=== PATIENT | male | born 1945 | race Caucasian/White ===

== ENCOUNTER 2021-09-24 12:41 | Day surgery (SDC) | payer MEDICARE, MEDICAID, SELFPAY ==
[2021-09-24] VITALS (7 sets, daily range): BP systolic 97–117; BP diastolic 67–94; PULSE 52–66; RESP 16–18; TEMP 36.5–36.9; O2SAT 95–100; BMI 20.9
[2021-09-24] MEDS: Lactated Ringers 1,000 ML 15 ML IV (13:12)
--- NOTE | 2021-09-24 13:45 | COLBX_PTH ---
PATIENT: CHRISTINA CROWDER LOC: EN U#:[id number] AGE/SX: 75/M ROOM: RE09/24/[address]: Dr. Pastor Maria DO : 1945 BED: DIS: 09/24/2021 SPEC #: [id number] RECD: 09/24/21 15:53 STATUS: GOPI VERONICA #: [id number] AIDA: 09/24/21 13:[address]: Pastor Maria DEPT: SURGICAL PATHOLOGY RECD BY: Mariel Gayle ENTERED: 09/25/21 09:47 SP TYPE: COLON BX ADAM DR: Dr. Wing Daily MD Tissues: A - COLON BIOPSY B - Transverse colon C - COLON BIOPSY D - Sigmoid colon biopsy Procedures: Surgery Specimen Level IV HEADER OPERATION: Colonoscopy wit biopsies, EGD ([facility] [place]) PRE-OP DIAGNOSIS: Anemia TISSUE SUBMITTED: A ? Hepatic flexure polyp biopsy, B ? Transverse colon polyp biopsy, C ? Splenic flexure polyp biopsy, D ? Sigmoid polyp biopsy MICROSCOPIC DIAGNOSIS A. Hepatic flexure polyp, biopsy: Fragments of tubular adenoma. Fragments of fecal material. B. Transverse colon polyp, biopsy: Fragments of tubular adenoma. C. Splenic flexure polyp, biopsy: Fragments of tubular adenoma. Fragments of fecal material. D. Sigmoid polyp, biopsy: Tubular adenoma. SJ:javier 09/26/2021 MICROSCOPIC DESCRIPTION Slides are reviewed. GROSS DESCRIPTION A - Received in fixative is one container labeled with the patient's name and designated hepatic flexure polyp biopsy. The specimen consists of multiple irregular fragments of negrete soft tissue mixed with fecal material that in aggregate measure 0.7 x 0.2 x 0.1 cm. The specimen is totally submitted in one cassette. B - Received in fixative is one container labeled with the patient's name and designated transverse colon polyp biopsy. The specimen consists of multiple irregular fragments of light negrete soft tissue mixed with fecal material that in aggregate measure 0.7 x 0.6 x 0.3 cm. The specimen is totally submitted in one cassette. C - Received in fixative is one container labeled with the patient's name and designated splenic flexure polyp biopsy. The specimen consists of multiple irregular fragments of light negrete soft tissue mixed with fecal material that in aggregate measure 2.5 x 0.5 x 0.1 cm. The specimen is totally submitted in one cassette. D - Received in fixative is one container labeled with the patient's name and designated sigmoid polyp biopsy. The specimen consists of multiple irregular fragments of light negrete soft tissue mixed with fecal material that in aggregate measure 1 x 0.3 x 0.2 cm. The specimen is totally submitted in one cassette. / NIKOLE:javier 09/25/2021 TC:1 CPT: 28221 x4
--- NOTE | 2021-09-24 14:18 | PCM.HP.BLA ---
History and Physical Date of Admission: 09/24/21 75 M who was referred to this clinic for evaluation of hematemesis. Additional medical history of parkinson?s disease, COPD, chronic pain, hematuria, dysphagia, vascular dementia with behavioral disturbance, history of alcohol abuse, prediabetes, hyperlipidemia, depressive disorder, HTN, GERD, constipation, communication deficit. 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 He is on dual antiplatelet therapy because of history of recent strokes. During his evaluation for strokes he was discovered to have a hemoglobin of 12.3. We do not have a previous hemoglobin to go on. He also has not had any endoscopy including colonoscopy in the past. He does not know if he has a family history of colon cancer. He has lost about 15 pounds. He denies any chest pain or shortness of breath. He is not on chronic oxygen. He does not have any easily bruising. On his evaluation he was discovered to have a normal platelet count at 230, white blood cell count was 7.8 and hemoglobin 12.3. His kidney function was normal with a BUN of 10 and a creatinine of 1. ROS Const Constitutional: No anorexia, fatigue, fever(s), weight change or sleep problems Eyes Eyes: No change in vision ENT ENT: No abnormal hearing, difficulty swallowing, mouth lesions, tongue swelling or throat swelling Resp Respiratory: No cough or shortness of breath Cardio Cardiology: No chest pain at rest, chest pain with exertion, shortness of breath or dyspnea on exertion Gastro GI: No difficulty swallowing Genitourinary Male: No difficulty urinating or burning urination Musc Musculoskeletal: No joint pain, joint swelling, muscle weakness or decreased muscle mass Skin Skin: No hair loss in leg, yellowing of the eye, itchy eyes, rash, skin ulcer or skin swelling Neuro Neurology: No abnormal hearing, abnormal movements, confusion, unsteady gait/balance or memory loss Psych Psychiatric: No anxiety, No confusion and No memory loss Endo Endocrine: No fatigue or weight change Aller/Imm Allergy/Immunologic: No itchy eyes, throat swelling or tongue swelling Jason/Lymp Hematologic/Lymphatic: No easy bleeding, easy bruising or enlarged lymph nodes Exam Const General: cooperative and comfortable Nutritional Appearance: average body habitus and well nourished HENMT Head: normal to inspection Ears: hearing grossly normal bilaterally Nose: external nose normal Face and sinus: normal facial exam Mouth: oral mucosae normal Throat: posterior oropharynx normal Eyes General: appearance normal, both eyes and all related structures Neck Neck: normal visual inspection Chest Chest palpation & inspection: normal inspection of the chest and normal palpation of entire chest wall Resp Effort & Inspection: normal respiratory effort Auscultation: Bilateral: Clear to Auscultation Cardio Palpation: normal PMI Rate: regular rate Rhythm: regular rhythm GI Inspection: normal to inspection Auscultation: normal bowel sounds Percussion: normal to percussion Palpation: no hepatosplenomegaly Skin General: no rashes or lesions noted Neuro General: patient alert Extrem General: normal to inspection Psych Affect: normal affect Assessment and Plan Assessment and Plan (1) Anemia: Status: Acute Plan - Dr. Baumann Friend, DO: 75 old gentleman with anemia of unknown cause on antiplatelet therapy. The differential diagnosis does include peptic ulcer disease, atrophic gastritis, malignancy, angiodysplasias, telangiectasias. He should undergo upper and lower endoscopy. He was explained alternatives, risk, benefits including outstanding bleeding, infection, sepsis, perforation, need for emergent surgery . He will be an ASA of 3. I have re-examined the patient. There are no clinical changes since date of exam.
--- NOTE | 2021-09-24 15:09 | OP.EGD_ITS ---
Patient Name: Sanjiv Stokes Procedure Date: 09/24/2021 2:13 PM Date of : 1945 Age: 75 Procedure: Upper GI endoscopy Indications: Iron deficiency anemia, Hematemesis Providers: Pastor Maria DO Medicines: See the Anesthesia note for documentation of the administered medications Patient Profile: This is a 75 year old male. Refer to note in patient chart for documentation of history and physical. Patient has symptoms. Complications: No immediate complications. Procedure: Pre-Anesthesia Assessment: - Prior to the procedure, a History and Physical was performed, and patient medications and allergies were reviewed. The patient is competent. The risks and benefits of the procedure and the sedation options and risks were discussed with the patient. All questions were answered and informed consent was obtained. Patient identification and proposed procedure were verified by the physician. Mental Status Examination: alert and oriented. Airway Examination: normal oropharyngeal airway and neck mobility. Respiratory Examination: clear to auscultation. CV Examination: normal. Prophylactic Antibiotics: The patient does not require prophylactic antibiotics. Prior Anticoagulants: The patient has taken no previous anticoagulant or antiplatelet agents. ASA Grade Assessment: II - A patient with mild systemic disease. After reviewing the risks and benefits, the patient was deemed in satisfactory condition to undergo the procedure. The anesthesia plan was to use moderate sedation / analgesia (conscious sedation). Immediately prior to administration of medications, the patient was re-assessed for adequacy to receive sedatives. The heart rate, respiratory rate, oxygen saturations, blood pressure, adequacy of pulmonary ventilation, and response to care were monitored throughout the procedure. The physical status of the patient was re-assessed after the procedure. After obtaining informed consent, the endoscope was passed under direct vision. Throughout the procedure, the patient's blood pressure, pulse, and oxygen saturations were monitored continuously. The colonoscope was introduced through the mouth, and advanced to the second part of duodenum. The upper GI endoscopy was accomplished without difficulty. The patient tolerated the procedure well. Moderate Sedation: Moderate (conscious) sedation was administered by the endoscopy nurse and supervised by the endoscopist. The patient's oxygen saturation, heart rate, blood pressure and response to care were monitored. Total physician intraservice time was 15 minutes. Scope In: 2:27:13 PM Scope Out: 2:32:47 PM Total Procedure Duration Time 0 hours 5 minutes 34 seconds Findings: The examined esophagus was normal. A single 5 mm bleeding angiodysplastic lesion was found in the gastric body. Coagulation for hemostasis using heater probe was successful. Estimated blood loss was minimal. The first portion of the duodenum was normal. Impression: - Normal esophagus. - A single bleeding angiodysplastic lesion in the stomach. Treated with a heater probe. - Normal first portion of the duodenum. - No specimens collected. Recommendation: - Discharge patient to home. - Resume previous diet. - Continue present medications. Procedure Code(s): --- Professional --- 50961, Esophagogastroduodenoscopy, flexible, transoral; with control of bleeding, any method 40818, 59, Moderate sedation services provided by the same physician or other qualified health healthcare translator performing the diagnostic or therapeutic service that the sedation supports, requiring the presence of an independent trained observer to assist in the monitoring of the patient's level of consciousness and physiological status; initial 15 minutes of intraservice time, patient age 5 years or older CPT copyright 2017 [employer]. All rights reserved. The codes documented in this report are preliminary and upon steel sash erector review may be revised to meet current compliance requirements. Pastor Maria DO 09/24/2021 3:08:54 PM This report has been signed electronically. Number of Addenda: 1 Note Initiated On: 09/24/2021 2:13 PM Addendum Number: 1 Addendum Date: 04/02/2022 6:21:30 AM MAC was used as sedation for this procedure. Pastor Maria DO 04/02/2022 6:21:36 AM This report has been signed electronically.
--- NOTE | 2021-09-24 15:10 | OP.CCLET_ITS ---
04/02/2022 Wing Daily [address] [place] [address] Re : Upper GI endoscopy procedure for Sanjiv Stokes Dear Dr. Daily This procedure was performed on Friday, September 24, 2021. My impressions and recommendations are as follows: Impressions : - Normal esophagus. - A single bleeding angiodysplastic lesion in the stomach. Treated with a heater probe. - Normal first portion of the duodenum. - No specimens collected. Recommendations : - Discharge patient to home. - Resume previous diet. - Continue present medications. My findings are described in the full procedure note, which is enclosed. If I can be of further assistance, please feel free to contact me at . Sincerely, Pastor Friend, 09/24/2021 3:08:54 PM This report has been signed electronically.
--- NOTE | 2021-09-24 15:17 | OP.COLON_ITS ---
Patient Name: Sanjiv Stokes Procedure Date: 09/24/2021 2:33 PM Date of : 1945 Age: 75 Procedure: Colonoscopy Indications: Screening for colorectal malignant neoplasm Providers: Pastor Maria DO Medicines: See the Anesthesia note for documentation of the administered medications Patient Profile: This is a 75 year old male. Refer to note in patient chart for documentation of history and physical. Patient has symptoms. Last Colonoscopy: none. The patient's first colonoscopy is today. Complications: No immediate complications. Procedure: Pre-Anesthesia Assessment: - Prior to the procedure, a History and Physical was performed, and patient medications and allergies were reviewed. The patient is competent. The risks and benefits of the procedure and the sedation options and risks were discussed with the patient. All questions were answered and informed consent was obtained. Patient identification and proposed procedure were verified by the physician. Mental Status Examination: alert and oriented. Airway Examination: normal oropharyngeal airway and neck mobility. Respiratory Examination: clear to auscultation. CV Examination: normal. Prophylactic Antibiotics: The patient does not require prophylactic antibiotics. Prior Anticoagulants: The patient has taken no previous anticoagulant or antiplatelet agents. ASA Grade Assessment: II - A patient with mild systemic disease. After reviewing the risks and benefits, the patient was deemed in satisfactory condition to undergo the procedure. The anesthesia plan was to use moderate sedation / analgesia (conscious sedation). Immediately prior to administration of medications, the patient was re-assessed for adequacy to receive sedatives. The heart rate, respiratory rate, oxygen saturations, blood pressure, adequacy of pulmonary ventilation, and response to care were monitored throughout the procedure. The physical status of the patient was re-assessed after the procedure. After I obtained informed consent, the scope was passed under direct vision. Throughout the procedure, the patient's blood pressure, pulse, and oxygen saturations were monitored continuously. The colonoscope was introduced through the anus and advanced to the cecum, identified by appendiceal orifice and ileocecal valve. The ileocecal valve, appendiceal orifice, and rectum were photographed. Moderate Sedation: Moderate (conscious) sedation was administered by the endoscopy nurse and supervised by the endoscopist. The patient's oxygen saturation, heart rate, blood pressure and response to care were monitored. Total physician intraservice time was 15 minutes. Scope In: 2:36:30 PM Scope Withdrawal Time 0 hours 17 minutes 8 seconds Scope Out: 3:03:20 PM Total Procedure Duration Time 0 hours 26 minutes 50 seconds Findings: The perianal and digital rectal examinations were normal. Five sessile polyps were found in the sigmoid colon, splenic flexure, transverse colon and hepatic flexure. The polyps were 1 to 2 mm in size. These polyps were removed with a hot snare. Resection and retrieval were complete. Verification of patient identification for the specimen was done. Estimated blood loss was minimal. A large amount of semi-solid stool was found in the rectum, in the recto-sigmoid colon, in the sigmoid colon and in the cecum, precluding visualization. Lavage of the area was performed using 200 - 500 mL of sterile water, resulting in incomplete clearance with continued poor visualization. Impression: - Five 1 to 2 mm polyps in the sigmoid colon, at the splenic flexure, in the transverse colon and at the hepatic flexure, removed with a hot snare. Resected and retrieved. - Stool in the rectum, in the recto-sigmoid colon, in the sigmoid colon and in the cecum. Recommendation: - Discharge patient to home. - Resume previous diet. - Continue present medications. - Await pathology results. - Repeat colonoscopy in 1 year for surveillance of multiple polyps. Procedure Code(s): --- Professional --- 39269, Colonoscopy, flexible; with removal of tumor(s), polyp(s), or other lesion(s) by snare technique 13035, 59, Moderate sedation services provided by the same physician or other qualified health child care team lead performing the diagnostic or therapeutic service that the sedation supports, requiring the presence of an independent trained observer to assist in the monitoring of the patient's level of consciousness and physiological status; initial 15 minutes of intraservice time, patient age 5 years or older CPT copyright 2017 [employer]. All rights reserved. The codes documented in this report are preliminary and upon inventory representative review may be revised to meet current compliance requirements. Pastor Maria DO 09/24/2021 3:16:24 PM This report has been signed electronically. Number of Addenda: 1 Note Initiated On: 09/24/2021 2:33 PM Addendum Number: 1 Addendum Date: 04/02/2022 6:21:45 AM MAC was used as sedation for this procedure. Pastor Maria DO 04/02/2022 6:21:49 AM This report has been signed electronically.
--- NOTE | 2021-09-24 15:17 | OP.CCLET_ITS ---
04/02/2022 Wing Daily [address] [place] [address] Re : Colonoscopy procedure for Sanjiv Stokes Dear Dr. Daily This procedure was performed on Friday, September 24, 2021. My impressions and recommendations are as follows: Impressions : - Five 1 to 2 mm polyps in the sigmoid colon, at the splenic flexure, in the transverse colon and at the hepatic flexure, removed with a hot snare. Resected and retrieved. - Stool in the rectum, in the recto-sigmoid colon, in the sigmoid colon and in the cecum. Recommendations : - Discharge patient to home. - Resume previous diet. - Continue present medications. - Await pathology results. - Repeat colonoscopy in 1 year for surveillance of multiple polyps. My findings are described in the full procedure note, which is enclosed. If I can be of further assistance, please feel free to contact me at . Sincerely, Pastor Friend, 09/24/2021 3:16:24 PM This report has been signed electronically.
--- NOTE | 2021-09-24 15:48 | SUR.PHASEII ---
PER DR. ROJO PT TO HOLD PLAVIX FOR 3 DAYS POST PROCEDURE.
== END 2021-09-24 15:52 | disposition home or self-care (01) ==
LOC: EN 12:46 → AC 12:48
PROVIDERS: PCP Internal Medicine Infectious Disease; Referring Provider Internal Medicine Infectious Disease; Visit Provider Internal Medicine Gastroenterology
PROC: 0DJD8ZZ Inspection of Lower Intestinal Tract, Via Natural or Artificial Opening Endoscopic (ICD-10-PCS; CPT 45378; principal; 2021-09-24 13:40)
DX: Z12.11 Encounter for screening for malignant neoplasm of colon (principal); G20 Parkinson's disease; F02.81 Dementia in other diseases classified elsewhere, unspecified severity, with behavioral disturbance; J43.9 Emphysema, unspecified; D12.3 Benign neoplasm of transverse colon; D12.5 Benign neoplasm of sigmoid colon; K31.811 Angiodysplasia of stomach and duodenum with bleeding; K92.0 Hematemesis; K59.00 Constipation, unspecified; D50.9 Iron deficiency anemia, unspecified; F32.A Depression, unspecified; K21.9 Gastro-esophageal reflux disease without esophagitis; I25.10 Atherosclerotic heart disease of native coronary artery without angina pectoris; I10 Essential (primary) hypertension; F17.200 Nicotine dependence, unspecified, uncomplicated; Z79.02 Long term (current) use of antithrombotics/antiplatelets; Z79.899 Other long term (current) drug therapy; Z86.73 Personal history of transient ischemic attack (TIA), and cerebral infarction without residual deficits
CPT/HCPCS: 45385; 43255; 88305; J7120; J2405

== ENCOUNTER 2022-11-05 08:10 | Day surgery (SDC) | payer MEDICARE, MEDICAID, SELFPAY ==
[2022-11-05] VITALS (7 sets, daily range): BP systolic 82–127; BP diastolic 35–73; PULSE 75–91; RESP 16–18; TEMP 36.2–36.9; O2SAT 94–100; BMI 20.7
--- NOTE | 2022-11-05 08:23 | SUR.PREOP ---
Tried calling at two different numbers with no answer.
[2022-11-05] MEDS: Lactated Ringers 1,000 ML 15 ML IV ×2 (09:02→10:27)
--- NOTE | 2022-11-05 09:30 | COLBX_PTH ---
PATIENT: CHRISTINA CROWDER LOC: EN U#:[id number] AGE/SX: 76/M ROOM: RE11/05/[address]: Dr. Pastor Maria DO : 1945 BED: DIS: 11/05/2022 SPEC #: [id number] RECD: 11/05/22 10:50 STATUS: GOPI JORDANLigia #: [id number] AIDA: 11/05/22 09:[address]: Pastor Maria DEPT: SURGICAL PATHOLOGY RECD BY: Mariel Gayle ENTERED: 11/05/22 11:29 SP TYPE: COLON BX OTHR DR: Dr. Wing Daily MD Tissues: POLYP Procedures: Surgery Specimen Level IV HEADER OPERATION: Colonoscopy (MAC), polypectomy, hemostasis clip, electrohemostasis PRE-OP DIAGNOSIS: Anemia, tubular adenoma of colon, angiodysplasia of stomach TISSUE SUBMITTED: Polyp cecal cap MICROSCOPIC DIAGNOSIS Polyp cecal cap, polypectomy: Fragments of tubular adenoma. NIKOLE:javier 11/06/2022 MICROSCOPIC DESCRIPTION Slides are reviewed. GROSS DESCRIPTION Received in fixative is one container labeled with the patient's name and designated polyp cecal cap. The specimen consists of multiple irregular fragments of negrete-pink soft tissue mixed with fecal material that in aggregate measure 2.5 x 2.0 x 0.4 cm. The specimen is totally submitted in one cassette. / NIKOLE:javier 11/05/2022 TC:1 CPT: 68959
--- NOTE | 2022-11-05 09:34 | HP.PCM_ITS ---
History and Physical Date of Admission: 11/05/22 CHRISTINA CROWDER, is a 75 M who presents to the office today for discussion of recent EGD and colonoscopy which were performed for anemia of unknown cause on antiplatelet therapy. [facility]. No further hematemesis. He has no complaints at this time. Aide reports no concerns. He is here today for repeat surveillance colonoscopy due to history of multiple polyps. Additional medical history of parkinson?s disease, COPD, chronic pain, hematuria, dysphagia, vascular dementia with behavioral disturbance, history of alcohol abuse, prediabetes, hyperlipidemia, depressive disorder, HTN, GERD, constipation, communication deficit. 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 He is on dual antiplatelet therapy because of history of recent strokes.? During his evaluation for strokes he was discovered to have a hemoglobin of 12.3.? We do not have a previous hemoglobin to go on.? He also has not had any endoscopy including colonoscopy in the past.? He does not know if he has a family history of colon cancer.? He has lost about 15 pounds.? He denies any chest pain or shortness of breath.? He is not on chronic oxygen.? He does not have any easily bruising.? On his evaluation he was discovered to have a normal platelet count at 230, white blood cell count was 7.8 and hemoglobin 12.3.? His kidney function was normal with a BUN of 10 and a creatinine of 1. 09/25/21 EGD and Colonoscopy: Impression: ? - Normal esophagus. ? - A single bleeding angiodysplastic lesion in ? the stomach. Treated with a heater probe. ? - Normal first portion of the duodenum. ? - No specimens collected. Impression: ? - Five 1 to 2 mm polyps in the sigmoid colon, ? at the splenic flexure, in the transverse colon ? and at the hepatic flexure, removed with a hot ? snare. Resected and retrieved. ? - Stool in the rectum, in the recto-sigmoid ? colon, in the sigmoid colon and in the cecum. MICROSCOPIC DIAGNOSIS A.? Hepatic flexure polyp, biopsy:Fragments of tubular adenoma.Fragments of fecal material. B.? Transverse colon polyp, biopsy:Fragments of tubular adenoma. C.? Splenic flexure polyp, biopsy:Fragments of tubular adenoma.Fragments of fecal material. D.? Sigmoid polyp, biopsy:Tubular adenoma ROS Const Constitutional: No fatigue ENT ENT: No difficulty swallowing Gastro GI: No abdominal pain, belching, bloating, change in bowel habits, change in stool character, coffee ground emesis, constipation, cramping, diarrhea, heartburn, difficulty swallowing, feeling full early, excessive flatus, incontinent of stools, Vomiting blood/hematemesis, Blood in stool, loose stools, Black,tarry stools, nausea/dyspepsia, pain with swallowing, vomiting or other Musc Musculoskeletal: No joint pain Skin Skin: No yellowing of the eye or itchy eyes Psych Psychiatric: No anxiety and No depression Endo Endocrine: No fatigue Aller/Imm Allergy/Immunologic: No itchy eyes Jason/Lymp Hematologic/Lymphatic: No easy bleeding or easy bruising Exam Const General: cooperative and comfortable GI Inspection: normal to inspection Palpation: soft Neuro General: patient alert and patient awake Other: uses a walker Quality Reporting Tobacco Screening ([facility] 138) Smoking Status: Light Smoker (<10/day) Assessment and Plan Assessment and Plan (1) Anemia: ?Status:?Acute (2) Tubular adenoma of colon: ?Status:?Acute (3) Angiodysplasia of stomach: ?Status:?Acute ?Plan - [place]ylar [place] CIVIL PREPAREDNESS OFFICER, CIVIL PREPAREDNESS OFFICER-C: 75 [facility] male [facility] resident had one bleeding angiodysplastic lesion in the stomach treated during EGD, no other sites of bleeding found. He had several tubular adenomas removed from the colon. I ordered CBC to be drawn at the [place]; if hgb improving then no further eval needed; if not improving then we'll do capsule endoscopy. Coding Level of Care Code Off vis,est,level 3 Diagnoses Anemia? D64.9 Tubular adenoma of colon? D12.6 Angiodysplasia of stomach? K31.819 I have examined the patient and the H&P has been reviewed. There are no clinical changes since date of exam.
--- NOTE | 2022-11-05 10:22 | OP.COLON_ITS ---
Patient Name: Sanjiv Stokes Procedure Date: 11/05/2022 9:36 AM Date of : 1945 Age: 76 Procedure: Colonoscopy Indications: High risk colon cancer surveillance: Personal history of colonic polyps Providers: Pastor Maria DO Referring MD: Pastor Maria DO Medicines: Monitored Anesthesia Care Patient Profile: This is a 76 year old male. Refer to note in patient chart for documentation of history and physical. Last Colonoscopy: 1 year ago. Complications: No immediate complications. Procedure: Pre-Anesthesia Assessment: - Prior to the procedure, a History and Physical was performed, and patient medications and allergies were reviewed. The risks and benefits of the procedure and the sedation options and risks were discussed with the patient. All questions were answered and informed consent was obtained. Patient identification and proposed procedure were verified by the physician in the pre-procedure area. Mental Status Examination: normal. Airway Examination: normal oropharyngeal airway and neck mobility. Respiratory Examination: clear to auscultation. Prophylactic Antibiotics: The patient does not require prophylactic antibiotics. Prior Anticoagulants: The patient has taken no previous anticoagulant or antiplatelet agents. After reviewing the risks and benefits, the patient was deemed in satisfactory condition to undergo the procedure. The anesthesia plan was to use monitored anesthesia care (MAC). Immediately prior to administration of medications, the patient was re-assessed for adequacy to receive sedatives. The heart rate, respiratory rate, oxygen saturations, blood pressure, adequacy of pulmonary ventilation, and response to care were monitored throughout the procedure. The physical status of the patient was re-assessed after the procedure. After I obtained informed consent, the scope was passed under direct vision. Throughout the procedure, the patient's blood pressure, pulse, and oxygen saturations were monitored continuously. The colonoscope was introduced through the anus and advanced to the cecum, identified by appendiceal orifice and ileocecal valve. The colonoscopy was performed without difficulty. The patient tolerated the procedure well. The quality of the bowel preparation was adequate. Scope In: 9:48:33 AM Scope Withdrawal Time 0 hours 19 minutes 28 seconds Scope Out: 10:12:46 AM Total Procedure Duration Time 0 hours 24 minutes 13 seconds Findings: The perianal and digital rectal examinations were normal. A 5 mm polyp was found in the cecum. The polyp was carpet-like. The polyp was removed with a saline injection-lift technique using a hot snare. Resection and retrieval were complete. Verification of patient identification for the specimen was done. Area was successfully injected with 5 mL of a 1:10,000 solution of epinephrine for drug delivery. To repair the defect, the tissue edges were approximated and one hemostatic clip was successfully placed. There was no bleeding at the end of the procedure. Coagulation for bleeding prevention using heater probe was successful. Estimated blood loss was minimal. A few small-mouthed diverticula were found in the recto-sigmoid colon and sigmoid colon. A single small angiodysplastic lesion with bleeding was found in the sigmoid colon. Coagulation for hemostasis using heater probe was successful. Estimated blood loss was minimal. Impression: - One 5 mm polyp in the cecum, removed using injection-lift and a hot snare. Resected and retrieved. Injected. Clip was placed. Treated with a heater probe. - Diverticulosis in the recto-sigmoid colon and in the sigmoid colon. - A single bleeding colonic angiodysplastic lesion. Treated with a heater probe. Recommendation: - Discharge patient to home. - Resume previous diet. - Continue present medications. - No aspirin, ibuprofen, naproxen, or other non-steroidal anti-inflammatory drugs for 7 days after biopsy. - Repeat colonoscopy in 1 year for surveillance. Procedure Code(s): --- Professional --- 46689, 59, Colonoscopy, flexible; with control of bleeding, any method 45168, Colonoscopy, flexible; with removal of tumor(s), polyp(s), or other lesion(s) by snare technique 20862, 59, Colonoscopy, flexible; with directed submucosal injection(s), any substance CPT copyright 2017 [employer]. All rights reserved. The codes documented in this report are preliminary and upon instructor correspondence school review may be revised to meet current compliance requirements. Pastor Maria DO 11/05/2022 10:21:33 AM This report has been signed electronically. Number of Addenda: 0 Note Initiated On: 11/05/2022 9:36 AM
--- NOTE | 2022-11-05 10:23 | OP.CCLET_ITS ---
11/05/2022 Wing Daily [address] [place] [address] Re : Colonoscopy procedure for Sanjiv Stokes Dear Dr. Daily This procedure was performed on Saturday, November 05, 2022. My impressions and recommendations are as follows: Impressions : - One 5 mm polyp in the cecum, removed using injection-lift and a hot snare. Resected and retrieved. Injected. Clip was placed. Treated with a heater probe. - Diverticulosis in the recto-sigmoid colon and in the sigmoid colon. - A single bleeding colonic angiodysplastic lesion. Treated with a heater probe. Recommendations : - Discharge patient to home. - Resume previous diet. - Continue present medications. - No aspirin, ibuprofen, naproxen, or other non-steroidal anti-inflammatory drugs for 7 days after biopsy. - Repeat colonoscopy in 1 year for surveillance. My findings are described in the full procedure note, which is enclosed. If I can be of further assistance, please feel free to contact me at . Sincerely, Pastor Maria, 11/05/2022 10:21:33 AM This report has been signed electronically.
--- NOTE | 2022-11-05 11:05 | SUR.PHASEII ---
called [facility] to give report. spoke to Yaritza. She states that the nurse is currently not in the office and that she can take a message. Informed her that I am sending resident back to [facility] and will send dc instructions along with the Aide, The nurse can call hospital if she has any questions. Also Spoke to chriss in the room and reviewed instructions with her. dc instructions sent with aid.
== END 2022-11-05 11:09 | disposition skilled nursing facility (03) ==
LOC: EN 08:13 → AC 08:14
PROVIDERS: PCP Internal Medicine Infectious Disease; Referring Provider Internal Medicine Gastroenterology; Visit Provider Internal Medicine Gastroenterology
PROC: 0DJD8ZZ Inspection of Lower Intestinal Tract, Via Natural or Artificial Opening Endoscopic (ICD-10-PCS; CPT 45378; principal; 2022-11-05 09:25)
DX: Z12.11 Encounter for screening for malignant neoplasm of colon (principal); G20 Parkinson's disease; F02.83 Dementia in other diseases classified elsewhere, unspecified severity, with mood disturbance; J44.9 Chronic obstructive pulmonary disease, unspecified; D12.0 Benign neoplasm of cecum; K55.21 Angiodysplasia of colon with hemorrhage; K57.30 Diverticulosis of large intestine without perforation or abscess without bleeding; K31.811 Angiodysplasia of stomach and duodenum with bleeding; K21.9 Gastro-esophageal reflux disease without esophagitis; I10 Essential (primary) hypertension; E78.5 Hyperlipidemia, unspecified; D64.9 Anemia, unspecified; F17.200 Nicotine dependence, unspecified, uncomplicated; Z79.02 Long term (current) use of antithrombotics/antiplatelets; Z79.899 Other long term (current) drug therapy; Z86.73 Personal history of transient ischemic attack (TIA), and cerebral infarction without residual deficits
CPT/HCPCS: 45385; 45381; 45382; 88305; J7120; J2405